=== PATIENT | male | born 1955 | race Caucasian/White ===

== ENCOUNTER 2019-06-08 18:35 | Emergency (ER) | payer BC ==
--- NOTE | 2019-06-08 19:12 | EDM.PDOC ---
ED HPI GENERAL MEDICAL PROBLEM - General Chief Complaint: General Stated Complaint: TESTICLES SWOLLEN Time Seen by Provider: 06/08/19 19:06 - History of Present Illness INITIAL COMMENTS - FREE TEXT/NARRATIVE: HISTORY AND PHYSICAL: History of present illness: Patient is 63-year-old white male with no significant past medical history presents with concern of right testicular pain and swelling progressively worse over last 4 days he denies any trauma he denies any urethral discharge discomfort penile lesions or history of STD or concern of such. No nausea vomiting fever chills or other complaints Review of systems: As per history of present illness and below otherwise all systems reviewed and negative. Past medical history: As per history of present illness and as reviewed below otherwise noncontributory. Surgical history: As per history of present illness and as reviewed below otherwise noncontributory. Social history: No reported history of drug or alcohol abuse. Family history: As per history of present illness and as reviewed below otherwise noncontributory. Physical exam: HEENT: Atraumatic, normocephalic, pupils reactive, negative for conjunctival pallor or scleral icterus, mucous membranes moist, throat clear, neck supple, nontender, trachea midline. Lungs: Clear to auscultation, breath sounds equal bilaterally, chest nontender. Heart: S1S2, regular, negative for clicks, rubs, or JVD. Abdomen: Soft, nondistended, nontender. Negative for masses or hepatosplenomegaly. Negative for costovertebral tenderness. Pelvis: Stable nontender. Genitourinary: Patient has tenderness and enlargement of his right testicle and epididymis noted. There is no significant hernia appreciated no penile lesions no urethral discharge Rectal: Deferred. Extremities: Atraumatic, negative for cords or calf pain. Neurovascular unremarkable. Neuro: Awake, alert, oriented. Cranial nerves II through XII unremarkable. Cerebellum unremarkable. Motor and sensory unremarkable throughout. Exam nonfocal. Diagnostics: CBC CMP UA urine for GC and Chlamydia testicular ultrasound Therapeutics: None Impression: #1 right testicular pain/swelling Definitive disposition and diagnosis as appropriate pending reevaluation and review of above. 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 ED EXAM, GENERAL - Physical Exam Exam: See Below (See dictation) Course - Vital Signs Last Recorded V/S: Last Vital Signs Temp 36.5 C 06/08/19 18:52 Pulse 82 06/08/19 18:52 Resp 18 06/08/19 18:52 BP 117/82 06/08/19 18:52 Pulse Ox 96 06/08/19 18:52 - Orders/Labs/Meds Orders: Active Orders 24 hr Category Date Time Status CHLAMYDIA AND GONORRHEA BY TMA Stat Lab 06/08/19 20:06 Received CULTURE URINE [RM] Stat Lab 06/08/19 20:06 Received Labs: Laboratory Tests 06/08/19 06/08/19 06/08/19 Range/Units 19:23 19:23 20:06 WBC 12.48 H (4.0-11.0) K/uL RBC 4.62 (4.50-5.90) M/uL Hgb 14.1 (13.0-17.0) g/dL Hct 41.2 (38.0-50.0) % MCV 89.2 (80.0-98.0) fL MCH 30.5 (27.0-32.0) pg MCHC 34.2 (31.0-37.0) g/dL RDW Std Deviation 43.5 (28.0-62.0) fl RDW Coeff of Vi 13 (11.0-15.0) % Plt Count 283 (150-400) K/uL MPV 10.50 (7.40-12.00) fL Neut % (Auto) 68.3 (48.0-80.0) % Lymph % (Auto) 20.0 (16.0-40.0) % Coal % (Auto) 7.9 (0.0-15.0) % Eos % (Auto) 3.5 (0.0-7.0) % Baso % (Auto) 0.3 (0.0-1.5) % Neut # (Auto) 8.5 H (1.4-5.7) K/uL Lymph # (Auto) 2.5 H (0.6-2.4) K/uL Coal # (Auto) 1.0 H (0.0-0.8) K/uL Eos # (Auto) 0.4 (0.0-0.7) K/uL Baso # (Auto) 0.0 (0.0-0.1) K/uL Nucleated RBC % 0.0 /100WBC Nucleated RBCs # 0 K/uL Sodium 136 (136-148) mmol/L Potassium 3.8 (3.5-5.1) mmol/L Chloride 103 (98-107) mmol/L Carbon Dioxide 21.0 (21.0-32.0) mmol/L BUN 22 H (7.0-18.0) mg/dL Creatinine 1.0 (0.8-1.3) mg/dL Est Cr Clr Drug Dosing 73.15 mL/min Estimated GFR (MDRD) > 60.0 ml/min Glucose 90 (74-106) mg/dL Calcium 8.0 L (8.5-10.1) mg/dL Total Bilirubin 1.1 H (0.2-1.0) mg/dL AST 17 (15-37) IU/L ALT 24 (14-63) IU/L Alkaline Phosphatase 86 (46-116) U/L Total Protein 7.4 (6.4-8.2) g/dL Albumin 3.7 (3.4-5.0) g/dL Globulin 3.7 (2.6-4.0) g/dL Albumin/Globulin Ratio 1.0 (0.9-1.6) Urine Color YELLOW Urine Appearance SLT CLOUDY Urine pH 6.0 (5.0-8.0) Ur Specific [place] 1.025 (1.001-1.035) Urine Protein NEGATIVE (NEGATIVE) mg/dL Urine Glucose (UA) NEGATIVE (NEGATIVE) mg/dL Urine Ketones NEGATIVE (NEGATIVE) mg/dL Urine Occult Blood TRACE-INTACT H (NEGATIVE) Urine Nitrite NEGATIVE (NEGATIVE) Urine Bilirubin NEGATIVE (NEGATIVE) Urine Urobilinogen 2.0 H (<2.0) EU/dL Ur Leukocyte Esterase SMALL H (NEGATIVE) Urine RBC 1-3 (0-2/HPF) Urine WBC 10-20 (0-5/HPF) Ur Epithelial Cells RARE (NONE-FEW) Urine Bacteria FEW (NEGATIVE) Departure - Departure Time of Disposition: 19:12 Disposition: Home, Self-Care 01 Condition: Good Clinical Impression: Epididymo-orchitis - Discharge Information Forms: ED Department Discharge Additional Instructions: The following information is given to patients seen in the emergency department who are being discharged to home. This information is to outline your options for follow-up care. We provide all patients seen in our emergency department with a follow-up referral. The need for follow-up, as well as the timing and circumstances, are variable depending upon the specifics of your emergency department visit. If you don't have a primary care physician on staff, we will provide you with a referral. We always advise you to contact your personal physician following an emergency department visit to inform them of the circumstance of the visit and for follow-up with them and/or the need for any referrals to a consulting specialist. The emergency department will also refer you to a specialist when appropriate. This referral assures that you have the opportunity for followup care with a specialist. All of these measure are taken in an effort to provide you with optimal care, which includes your followup. Under all circumstances we always encourage you to contact your private physician who remains a resource for coordinating your care. When calling for followup care, please make the office aware that this follow-up is from your recent emergency room visit. If for any reason you are refused follow-up, please contact the [facility] emergency department at and asked to speak to the emergency department charge nurse. TH[facility] - Urology [address] [place] [id number] Doxycycline as prescribed follow-up urology as discussed return as needed as discussed - My Orders Last 24 Hours: My Active Orders 06/08/19 20:06 CHLAMYDIA AND GONORRHEA BY TMA Stat CULTURE URINE [RM] Stat - Assessment/Plan Last 24 Hours: My Active Orders 06/08/19 20:06 CHLAMYDIA AND GONORRHEA BY TMA Stat CULTURE URINE [RM] Stat
[2019-06-08 20:02] LABS: CHLORIDE,CL 103 mmol/L (98-107); SODIUM,NA 136 mmol/L (136-148)
--- NOTE | 2019-06-08 21:28 | US ---
TECHNIQUE: Scrotal ultrasound with grayscale, color and spectral Doppler imaging. INDICATION: Testicular pain and swelling. The laterality of the pain was not indicated. FINDINGS: Both testicles have normal cortical echogenicity with no solid intratesticular mass. There is a moderate size right sided hydrocele. The right epididymis is enlarged. The right epididymis and testicle are hyperemic. Findings are consistent with right-sided epididymo-orchitis if the patient has right-sided testicular pain. IMPRESSION: If the patient has right-sided testicular pain, findings are consistent with right epididymo-orchitis. Dictated by Celso Byrd MD @ 06/08/2019 9:25:36 PM Dictated by: Celso Bryd MD @ 06/08/2019 21:25:41 (Electronically Signed)
--- NOTE | 2019-06-08 23:43 | US ---
INDICATION: Pain and swelling TECHNIQUE: Ultrasound of the scrotum and contents. Sonographic tovar-scale images were obtained with spectral and color Doppler waveform and spectral waveform analysis of the testicles. COMPARISON: None FINDINGS: Right testicle: 3.8 x 2.4 x 3.5 cm. Normal echotexture. No masses. No suspicious calcifications. Normal arterial and venous and blood flow using Doppler and spectral waveform analysis. Left testicle: 4.4 x 3.2 x 3.1 cm. Normal echotexture. No masses. No suspicious calcifications. Normal arterial and venous and blood flow using Doppler and spectral waveform analysis. Epididymis: Normal left epididymis. The body and the tail of the right epididymis are enlarged and demonstrate increased blood flow. Other: Bilateral hydroceles. No sign of varicocele. Edema within the right scrotal wall. IMPRESSION: Findings concerning for right epididymitis. There is also right scrotal wall edema which may be due to cellulitis. No evidence for testicular torsion or intratesticular mass. Bilateral hydroceles. Dictated by Demetrice Hollis MD @ Jun 08 2019 11:41PM Signed by Dr. Demetrice Hollis @ Jun 08 2019 11:41PM
== END 2019-06-08 22:11 | disposition home or self-care (01) ==
LOC: MW.ED 18:35
DX: N45.3 Epididymo-orchitis (principal); I10 Essential (primary) hypertension; F17.210 Nicotine dependence, cigarettes, uncomplicated; Z79.899 Other long term (current) drug therapy
CPT/HCPCS: 36415; 76870; 76870-26; 80053; 81001; 85025; 87086; 87491; 87591; 93976; 93976-26; 99283; 99284-25